=== PATIENT | male | born 1965 | race Caucasian/White ===

== ENCOUNTER 2022-03-10 09:26 | Emergency (ER) | payer SELFPAY ==
[2022-03-10 09:26] VITALS: BP 160/151; PULSE 71; RESP 14; TEMP 36.6; O2SAT 97; BMI 32.3
--- NOTE | 2022-03-10 09:54 | CT_ITS ---
HISTORY: Hemoptysis. Smoker, COPD. TECHNIQUE: CT angiogram of the chest was performed after the intravenous administration of 100 mL Isovue-370. Post-processing of the angiographic images was performed with multiplanar reformation and 3D reconstruction. Individualized dose optimization techniques were used for this CT. 1311 images. COMPARISON: None. FINDINGS: CENTRAL AIRWAYS: Patent. LUNGS: Moderate emphysema with mild biapical scarring and mild lower lobe bronchiectasis. PLEURA: No pneumothorax or significant pleural effusion. HEART/PERICARDIUM: Heart within normal limits in size. Coronary artery calcification present. No pericardial effusion. PULMONARY ARTERIES: No filling defect. AORTA/VESSELS: No thoracic aortic aneurysm or dissection flap. MEDIASTINUM/MADAY: No pathologically enlarged lymph nodes. OSSEOUS STRUCTURES: Old left fourth and fifth and right first through fourth rib fractures. Mild chronic T12 compression fracture. UPPER ABDOMEN: Calcified splenic granulomas. CT/CTA Chest W/WO Contrast IMPRESSION: No evidence of pulmonary embolism. Pulmonary emphysema with mild biapical scarring. Electronically Signed: Lucinda Galloway MD at 10:59 EST ,
--- NOTE | 2022-03-10 09:57 | EX.ED.DYSGE1 ---
HPI History of Present Illness Chief Complaint: Cough Informant: patient Narrative Narrative: 56-year-old male presenting to the emergency department chief complaint of hemoptysis. Patient states that he has been a long-term smoker for approximately 40 years. He notes that he has a chronic smoker's cough. The amount of coughing is unchanged. However on Wednesday he states he had a sudden urge to cough when he did phlegm came up and it was streaked with bright red blood. Because of the lack of health insurance he did not get checked out and he said to himself that if it happened again he would come in and be seen. It happened again this morning while he was at work and he is afraid that he may have lung cancer. He denies any change in urination or swelling. He denies weight loss. No night sweats. No fevers. [facility] Medical History (Updated 03/10/22 @ 11:[address] Isidoro Crowder DO) COPD (chronic obstructive pulmonary disease) Medical History no medical history no medical history Allergy/AdvReac Type Severity Reaction Status Date / Time No Known Allergies Allergy Verified 03/10/22 09:29 Social History (Updated 03/10/22 @ 10:[address] Isidoro Crowder DO) Smoking Status: Current every day smoker tobacco type: cigarettes substance use type: does not use ROS ROS ED Constitutional Constitutional ED: Denies chills, fever(s) or weight loss Eyes Eyes: Denies change in vision or diplopia ENT ENT ED: Denies ear pain, rhinorrhea or sore throat Cardiovascular Cardiovascular: Denies chest pain, orthopnea, palpitations or racing heartbeat Respiratory/Chest Respiratory/Chest: Reports cough, sputum and other Details: Hemoptysis ; Denies dyspnea or orthopnea Gastrointestinal Gastrointestinal: Denies abdominal pain, diarrhea, nausea or vomiting Genitourinary Genitourinary ED: Denies dysuria, hematuria or urinary frequency Musculoskeletal Musculoskeletal: Denies arthralgias or myalgias Integumentary Denies abscess or rash Neurologic Neurologic: Denies headache(s) or weakness Psychiatric Psychiatric: Denies anxiety, depression, suicidal ideation or suicidal thoughts Endocrine Endocrinology: Denies polydipsia, polyphagia or polyuria Allergic/Immunologic Allergic/Immunologic ED: Denies mouth swelling, tongue swelling or urticaria EXAM Physical Exam Const Vital Signs: 03/10/22 09:26 03/10/22 10:12 Temperature 97.9 F Temperature Source Temporal Pulse Rate 71 Respiratory Rate 14 Respiratory Effort Normal Respiratory Pattern Normal Blood Pressure 160/151 H Blood Pressure Mean 154 Pulse Ox 97 Oxygen Delivery Method Room Air Positive well nourished and well developed General Appearance ED: well developed HEENT Reports normocephalic, head/scalp atraumatic and moist mucous membranes Eyes PERRL and EOMs intact bilaterally Neck no lymphadenopathy, supple and no JVD Resp normal respiratory effort and clear to auscultation bilaterally Cardio regular rate, regular rhythm and no murmurs GI normal to inspection, nondistended, normoactive bowel sounds and non-tender Palpation: soft Back/Spine no CVA tenderness and normal ROM Extremity normal to inspection General Extremety ED: Negative for edema General Extremity: Negative for edema Neuro oriented x3 and CN's II-XII intact bilaterally Sensorium / Orientation: alert Motor Exam: strength 5/5 throughout Psych mental status grossly normal Mood & Affect: tearful; Negative for depressed Skin no rashes or lesions noted and no wounds MDM MDM MDM Narrative Medical decision making narrative: CBC shows a white count of 6.4 and hemoglobin of 14.9. BMP is negative for anything acute. CTA of the chest was obtained. There is no evidence of pulmonary embolism or evidence at this time of cancer. He does have a changes consistent with emphysema with apical scarring. At this point smoking cessation was discussed with the patient. I think that the blood is most likely related to his chronic cough and his emphysema. I will refer him to pulmonology. The patient to return if worsening. He notes understanding of the plan. Lab Data Attestation: I reviewed the patient's lab results. Labs: Laboratory Results - last 24 hr 03/10/22 03/10/22 10:00 10:00 WBC 6.4 RBC 5.21 Hgb 14.9 Hct 45.3 MCV 86.9 MCH 28.6 MCHC 32.9 RDW Std Deviation 43.8 RDW Coeff of [place] 13.7 Plt Count 195 MPV 10.7 Immature Gran % (Auto) 0.300 Neut % (Auto) 63.4 Lymph % (Auto) 26.1 [place] % (Auto) 8.0 Eos % (Auto) 1.3 Baso % (Auto) 0.9 Absolute Neuts (auto) 4.1 Absolute Lymphs (auto) 1.67 Nucleated RBC % 0 Sodium 139 Potassium 4.1 Chloride 109 H Carbon Dioxide 24.0 Anion Gap 6 BUN 18 Creatinine 0.86 Estim Creat Clear Calc 105.81 Est GFR (MDRD) Af Amer 117 Est GFR (MDRD) Non-Af 97 BUN/Creatinine Ratio 20.9 H Glucose 105 Calcium 9.3 Radiography Diagnostic Testing: Clinical Impression(s) from Imaging Studies Chest CTA 03/10/22 09:54 IMPRESSION: No evidence of pulmonary embolism. Pulmonary emphysema with mild biapical scarring. Electronically Signed: Lucinda Galloway MD at 10:59 EST Reading Location ID and State: [facility] / [place] Tel , Service support , Discharge Plan Triage Chief Complaint: Cough ED Provider: Isidoro Crowder Dx/Rx/DC Orders Clinical Impression: Emphysema lung, Cough with hemoptysis, Tobacco use Instructions: COPD Quit Smoking, Emphysema Dc Primary Care Provider: Moses Morton Referrals: Rai Sy MD [Med Staff - Active Staff] - As soon as possible Moses Morton MD [Primary Care Provider] - Disposition Disposition: Home, Self Care
[2022-03-10 10:10] LABS: Absolute Lymphocyte Count 1.67 X10^3/uL (0.83-4.51); Absolute Neutrophil Count 4.1 X10^3/uL (2.0-7.7); Basophil# 0.06 X10^3/uL; Basophil% 0.9 % (0-1); Eosinophil# 0.08 X10^3/uL; Eosinophils% 1.3 % (0-5); Hematocrit 45.3 % (40-54); Hemoglobin 14.9 g/dL (13.0-16.5); Lymphocyte # 1.67 X10^3/ul (0.83-4.51); Lymphocyte % 26.1 % (19-41); Mean Corp Hgb Conc 32.9 g/dL (32-36); Mean Corpuscular Hgb 28.6 pg (27.0-32.0); Mean Corpuscular Volume 86.9 fL (80-94); Mean Platelet Vol. 10.7 fl (6.2-12.0); Monocyte# 0.51 X10^3/uL; NRBC Flagged by Analyzer 0 % (0-5); Neutrophil # 4.05 X10^3/uL (2.7-7.7); Neutrophil % 63.4 % (47-70); Platelet Count 195 K/mm3 (150-450); RBC Distribution Width CV 13.7 % (11.6-14.6); RBC Distribution Width SD 43.8 fl (35.1-43.9); Red Blood Count 5.21 M/mm3 (4.6-6.2); White Blood Count 6.4 K/mm3 (4.4-11.0)
[2022-03-10 10:31] LABS: Anion Gap 6 (5-15); BUN 18 mg/dL (7-18); BUN/Creat Ratio 20.9 RATIO (10-20); Calcium,Total 9.3 mg/dL (8.5-10.1); Chloride 109 mmol/L (98-107); Creatinine, Serum 0.86 mg/dL (0.70-1.30); EST Glomerular Filtration Rate 97 mL/min (>60); Est Glom Filt Rate - Afr Amer 117 mL/min (>60); Estimated Creatinine Clearance 105.81 ml/min; Glucose 105 mg/dL (74-106); Potassium 4.1 mmol/L (3.5-5.1); Sodium Level 139 mmol/L (136-145)
== END 2022-03-10 11:27 | disposition home or self-care (01) ==
PROVIDERS: Emergency Provider Emergency Medicine; PCP Family Medicine; Visit Provider Emergency Medicine
DX: J43.9 Emphysema, unspecified (principal); J41.0 Simple chronic bronchitis; R04.2 Hemoptysis; Z59.7 Insufficient social insurance and welfare support; F17.210 Nicotine dependence, cigarettes, uncomplicated
CPT/HCPCS: 71275; 80048; 85025; 99283; Q9967; A4216